=== PATIENT | male | born 1945 | race Caucasian/White ===

== ENCOUNTER → 2019-12-17 09:17 | Outpatient (REF) | payer MEDICARE, SELFPAY | LOC: ANHLAB 09:17 | PROVIDERS: PCP Internal Medicine; Visit Provider Nurse Practitioner Family | DX: C44.519 Basal cell carcinoma of skin of other part of trunk (principal) | CPT/HCPCS: 88305 ==

== ENCOUNTER 2021-02-20 15:10 | Outpatient (CLI) | payer MEDICARE, SELFPAY ==
--- NOTE | ~2021-02-20 | US_ITS ---
EXAMINATION: US carotid duplex BI DATE: 02/20/2021 15:48 INDICATION: Transient ischemic attack. Cerebral infarction. TECHNIQUE: Grayscale, color Doppler, and pulsed Doppler images of the cervical carotid arteries were obtained. The degree of vessel stenosis is placed in one of the following categories: normal, <50%, 5 0-69%, >=70% but less than near-occlusion, near-occlusion, or total occlusion. Note that percent sten osis relative to normal distal artery lumen diameter is indirectly measured from velocity measurement s as described by Ata, et al. Radiology 2003; 229:340-346. COMPARISON: None. FINDINGS: RIGHT: The right common carotid artery (CCA) peak systolic velocity (PSV) is 91 cm/s. The right internal car otid artery (ICA) PSV is 87 cm/s. The right ICA end-diastolic velocity (EDV) is 35 cm/s. The right IC A/CCA PSV ratio is 1.0. Grayscale and color Doppler images yield an estimate of <50% diameter reducti on from plaque in the ICA. There is antegrade flow in the right vertebral artery. LEFT: The left CCA PSV is 89 cm/s. The left ICA PSV is 73 cm/s. The left ICA EDV is 34 cm/s. The left ICA/C CA PSV ratio is 0.8. Grayscale and color Doppler images yield an estimate of <50% diameter reduction from plaque in the ICA. There is antegrade flow in the left vertebral artery. IMPRESSION: 1. <50% stenosis in the right internal carotid artery. 2. <50% stenosis in the left internal carotid artery. Reviewed, dictated and finalized at location A.
== END 2021-02-20 15:11 | disposition home or self-care (01) ==
PROVIDERS: PCP Internal Medicine; Visit Provider Internal Medicine
DX: Z86.73 Personal history of transient ischemic attack (TIA), and cerebral infarction without residual deficits (principal); I65.23 Occlusion and stenosis of bilateral carotid arteries
CPT/HCPCS: 93880

== ENCOUNTER 2021-03-02 12:06 | Outpatient (CLI) | payer MEDICARE, SELFPAY ==
--- NOTE | 2021-03-02 12:52 | ECHO_ITS ---
Patient Info Name: Aldo Murray Age: 75 years : 1945 Gender: Male Ht: 70 in Wt: 180 lbs BSA: 2.02 m2 HR: 78 bpm BP: 125 / 76 mmHg Technical Quality: Good Exam Date: 03/02/2021 1:07 PM Exam Location: [facility] Patient Status: Outpatient Admit Date: 03/02/2021 Staff Ordering Physician: Jaun Frias MD Farmer And Grazier: Lynette Reaves RDCS Attending Provider: Jaun Frias MD Exam Type: CA echo doppler color flow Study Info Indications - hx/o AICD - chronic combined systloic diastloic heart failure Complete two-dimensional, color flow and Doppler transthoracic echocardiogram is performed. Summary 1. Complete two-dimensional, color flow and Doppler transthoracic echocardiogram is performed. 2. Left ventricular chamber dimension is severely enlarged. 3. Left ventricular systolic function is severely reduced, estimated at 20-25%. 4. The left ventricular diastolic function is grade I diastolic dysfunction. 5. E/e' 10 is mildly elevated. 6. Linear artifact in right ventricle suggestive of catheter(s), pacemaker lead(s), or ICD lead(s). 7. Left atrial chamber dimension is mildly enlarged. 8. Linear artifact in the right atrium suggestive of catheter(s), pacemaker lead(s), or ICD lead(s). 9. There is mild mitral valve regurgitation. 10. There is moderate tricuspid valve regurgitation. 11. No pulmonary hypertension, estimated pulmonary arterial systolic pressure is 27 mmHg. Left Ventricle E/e' 10 is mildly elevated. Left ventricular chamber dimension is severely enlarged. Left ventricular systolic function is severely reduced, estimated at 20-25%. The left ventricular diastolic function is grade I diastolic dysfunction. Right Ventricle Linear artifact in right ventricle suggestive of catheter(s), pacemaker lead(s), or ICD lead(s). Right ventricular chamber dimension is normal. Right ventricular systolic function is normal. Left Atria Left atrial chamber dimension is mildly enlarged. Right Atria Linear artifact in the right atrium suggestive of catheter(s), pacemaker lead(s), or ICD lead(s). Right atrial chamber dimension is normal. Aortic Valve The aortic valve is trileaflet. There is no aortic valve stenosis. There is no aortic valve regurgitation. Pulmonic Valve There is no pulmonic regurgitation. Mitral Valve There is no mitral valve stenosis. There is mild mitral valve regurgitation. Tricuspid Valve There is moderate tricuspid valve regurgitation. No pulmonary hypertension, estimated pulmonary arterial systolic pressure is 27 mmHg. Pericardium/Pleural There is no pericardial effusion. Inferior Vena Cava Inferior vena cava is not well visualized. Aorta The aortic root size at the sinus of Valsalva is normal. Left Ventricular Outflow Tract Name Value Normal LVOT 2D LVOT Diameter 2.1 cm LVOT Doppler LVOT Peak Gradient 2 mmHg LVOT Mean Gradient 1 mmHg LVOT VTI 16 cm LVOT VTI/AV VTI Ratio 0.8 LVOT Stroke Volume
== END 2021-03-02 12:07 | disposition home or self-care (01) ==
PROVIDERS: PCP Internal Medicine; Visit Provider Internal Medicine
DX: I50.42 Chronic combined systolic (congestive) and diastolic (congestive) heart failure (principal); I34.0 Nonrheumatic mitral (valve) insufficiency; I36.1 Nonrheumatic tricuspid (valve) insufficiency
CPT/HCPCS: 93306

== ENCOUNTER → 2021-08-21 11:39 | Outpatient (CLI) | payer MEDICARE, SELFPAY ==
--- NOTE | ~2021-08-21 | CT_ITS ---
EXAMINATION: CT brain wo con DATE: 08/21/2021 11:55 INDICATION: Dementia. Alzheimer's disease unspecified. TECHNIQUE: Computed tomography (CT) of the head was performed without intravenous contrast. The mA wa s adjusted according to patient size. Iterative reconstruction technique was employed. The dose-lengt h product was 599.57 mGy-cm. COMPARISON: None FINDINGS: There is an old infarct in left caudate nucleus. There is an old infarct in left parietal-o ccipital region. There is no intracranial hemorrhage, acute infarction, or abnormal intracranial mass lesion. The ventricles are normal in size. There are likely changes of ocular lens replacement surge kenny. There is mild mucosal thickening in the paranasal sinuses. The mastoid air cells are normal. IMPRESSION: 1. 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 Reviewed, dictated and finalized at location A. [employer]
== END ==
PROVIDERS: PCP Internal Medicine; Visit Provider Nurse Practitioner Gerontology
DX: G30.9 Alzheimer's disease, unspecified (principal); F02.80 Dementia in other diseases classified elsewhere, unspecified severity, without behavioral disturbance, psychotic disturbance, mood disturbance, and anxiety; Z86.73 Personal history of transient ischemic attack (TIA), and cerebral infarction without residual deficits
CPT/HCPCS: 70450

== ENCOUNTER → 2023-01-02 08:20 | Outpatient (CLI) | payer MEDICARE, SELFPAY ==
--- NOTE | ~2023-01-02 | XR_ITS ---
XR chest 2V DATE: 01/02/2023 08:35 INDICATION: Acute cough for 1.5 weeks. Hypertension. Previous smoker. TECHNIQUE: 2 views COMPARISON: None FINDINGS: Status post sternotomy. Left AICD/pacemaker. Normal heart size. There is aortic calcificati on and unfolding. No hilar or mediastinal enlargement. Minimal discoid atelectasis or scarring at the right lung base. The lungs are clear of infiltrate or consolidation. No pleural effusion or pulmonary vascular congestion or pneumothorax. IMPRESSION: Status post sternotomy Left AICD/pacemaker Aortic atherosclerosis Mild discoid scarring or atelectasis at right lung base; otherwise no active cardiopulmonary disease Reviewed, dictated and finalized at location B. IMPRESSION: Status post sternotomy Left AICD/pacemaker Aortic atherosclerosis Mild discoid scarring or atelectasis at right lung base; otherwise no active ca rdiopulmonary disease
== END ==
PROVIDERS: PCP Internal Medicine
DX: R05.1 Acute cough (principal); I70.0 Atherosclerosis of aorta; Z95.0 Presence of cardiac pacemaker
CPT/HCPCS: 71046

== ENCOUNTER 2023-11-12 01:22 | Emergency (ER) | payer MEDICARE, SELFPAY ==
--- NOTE | ~2023-11-12 | CT_ITS ---
EXAMINATION: CTA LE RT DATE: 11/12/2023 03:43 INDICATION: Right calf pain. Peripheral arterial disease. TECHNIQUE: Computed tomographic angiography (CTA) of the right lower extremities was performed with 1 30 mL Omnipaque-350 intravenous contrast. Automated exposure control and iterative reconstruction prem hnique were employed. The dose-length product was 553.32 mGy-cm. Maximum intensity projection 3D-cullen nstructions of the arteries were created by the technologist on a separate workstation. COMPARISON: None. FINDINGS: RIGHT LOWER EXTREMITY VASCULATURE: There is no significant stenosis of right common femoral artery. There is mild stenosis of origin of right profunda femoris. There is total occlusion of right superficial femoral artery at its origin wi th intermittent partial opacification from collaterals. There is reconstitution of flow in distal rig ht superficial femoral artery. There is total occlusion of right above-knee popliteal artery, tibiope roneal trunk, and peroneal artery. There is reconstitution of flow in proximal right anterior tibial artery. Distal right anterior tibial artery is not opacified, which may be secondary to occlusion or contrast timing. There is reconstitution of flow in proximal posterior tibial artery. There is interm ittent moderate stenosis of posterior tibial artery ADDITIONAL FINDINGS: The prostate is moderately enlarged. There is mild right hip and knee osteoarthritis. IMPRESSION: 1. Total occlusion of proximal right superficial femoral artery with distal reconstitution. 2. Total occlusion of right above-knee popliteal artery, tibioperoneal trunk, and peroneal artery. 3. Reconstitution of flow in proximal right anterior tibial artery. Lack of contrast in distal right anterior tibial artery may be secondary to occlusion or contrast timing. 4. Reconstitution of flow in proximal posterior tibial artery. Intermittent moderate stenosis of post erior tibial artery. Reviewed, dictated and finalized at location A. [employer] AGENT IMPRESSION: 1. Total occlusion of proximal right superficial femoral artery with distal re constitution. 2. Total occlusion of right above-knee popliteal artery, tibioperoneal trunk, a nd peroneal artery. 3. Reconstitution of flow in proximal right anterior tibial artery. Lack of con trast in distal right anterior tibial artery may be secondary to occlusion or c ontrast timing. 4. Reconstitution of flow in proximal posterior tibial artery. Intermittent mod erate stenosis of posterior tibial artery.
[2023-11-12 01:30] VITALS: BP 123/73; PULSE 63; RESP 15; TEMP 36.5; O2SAT 98
--- NOTE | 2023-11-12 02:13 | ED.EXTPRO ---
HPI - Extremity Problem General Chief complaint: Extremity Problem,Nontraumatic Stated complaint: Pain in right leg Time Seen by Provider: 11/12/23 01:42 History of Present Illness HPI Narrative: 78-year-old male with a history of hypertension, TIA, dyslipidemia, CKD, s/p CABG reports for evaluation for acute onset pain to his right calf that started approximately 5 hours prior to arrival. Patient states that the onset of symptoms, his right foot was numb but is no longer numb. He denies recent injury or trauma, swelling, chest pain or shortness of breath, abdominal pain, syncope. 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 Related Data Home Medications Medication Instructions Recorded Confirmed aspirin 81 mg tablet,delayed 81 mg PO DAILY 12/17/19 12/26/22 release (Adult Low Dose Aspirin) magnesium chloride 64 mg 64 mg PO DAILY 12/17/19 12/26/22 (magnesium chloride) tablet,delayed release simvastatin 40 mg tablet 40 mg PO 12/17/19 12/26/22 vitamin B complex (B 1 tablet PO DAILY 01/31/21 12/26/22 Complex-Vitamin B12 tablet) clopidogrel 75 mg tablet 75 mg PO DAILY 11/20/22 12/26/22 fluticasone propionate 50 2 spray intranasal BID 12/26/22 12/26/22 mcg/actuation nasal spray,suspension (Flonase Allergy Relief) Allergies Allergy/AdvReac Type Severity Reaction Status Date / Time No Known Allergies Allergy Verified 12/26/22 10:47 Review of Systems Review of Systems: CONSTITUTIONAL: Denies fever, chills, or sweats. EYES: Denies visual changes, redness, or discharge. ENT: Denies rhinorrhea, congestion, sore throat, or otalgia. CARDIOVASCULAR: Denies chest pain, palpitations, or edema. RESPIRATORY: Denies cough or dyspnea. GASTROINTESTINAL: Denies abdominal pain, nausea, vomiting, or diarrhea. GENITOURINARY: Denies dysuria or hematuria. SKIN: Denies rash or itching. MUSCULOSKELETAL: See HPI NEUROLOGIC: Denies headache, numbness, or weakness. PSYCHIATRIC: Denies anxiety or depression. [facility] Past Medical History Medical History Actinic keratosis BCC (basal cell carcinoma of skin) Benign non-nodular prostatic hyperplasia with lower urinary tract symptoms Chronic allergic rhinitis CKD stage G3a/A1, GFR 45-59 and albumin creatinine ratio <30 mg/g Essential (primary) hypertension Gastro-esophageal reflux disease without esophagitis Hemorrhoids without complication Hypothyroidism (acquired) Hypovitaminosis D Ischemic cardiomyopathy Nasal septal deviation Systolic and diastolic CHF, chronic Surgical History Surgical History Hx of CABG Social History Social History Social History: Patient stopped smoking 20 years ago Smoking packs per day: 3 Smoking cigarettes per day: 60.0 Years smoked: 40 Smoking pack-years: 120.00 Smoking status: Former smoker (quit after his first heart attack) Second hand tobacco smoke exposure: Yes Smoking end date: 10/07/89 Alcohol intake: never Substance use: never Substance use type: does not use Lack of Transportation: No Lack of Food: Never True Current Housing: I Have Housing Concerned About Future Housing: No Difficulty Paying Gas/Electric Bills: No Difficulty Paying for Meds: No Currently Unemployed: No Education: Trade/Vocational Certificate Difficulty w/ Childcare or Family Care: No Exam Narrative: GENERAL: Well-appearing, well-nourished, and in no acute distress. HEAD: Normocephalic, atraumatic. EYES: PERRLA and EOMI. ENT: Nares clear, no rhinorrhea or epistaxis. Mucous membranes moist. NECK: Supple. CHEST: Clear to auscultation. No respiratory distress. HEART: Regular rate and rhythm. No murmur heard. Normal peripheral pulses. ABDOMEN: Soft, nontender, nondistended, normal active bowel sounds. EXTREMITIES: Tenderness
[2023-11-12 02:44] VITALS: BP 128/70; PULSE 60; RESP 13; O2SAT 99
[2023-11-12 02:45] VITALS: BP 137/80; PULSE 65; RESP 19; O2SAT 99
[2023-11-12 02:52] LABS: Basophils Percent Auto 0.5 % (0.2-1.2); Eosinophils Absolute Auto 0.1 K/mm3 (0-0.3); Eosinophils Percent Auto 0.9 % (0-4.4); Hematocrit 43.9 % (42.0-52.0); Hemoglobin 14.8 g/dL (14.0-18.0); Immature Granulocyte Absolute 0.03 K/mm3 (0.00-0.031); Immature Granulocyte Percent A 0.3 % (0-0.5); Lymphocytes Absolute Auto 2.32 K/mm3 (0.9-3.2); Lymphocytes Percent Auto 26.2 % (18.3-44.2); Mean Corpuscular HGB Conc 33.7 g/dl (32-36); Mean Corpuscular Hemoglobin 31.3 pg (26-34); Mean Corpuscular Volume 92.8 fl (80-100); Mean Platelet Volume 9.4 fl (7.4-10.4); Monocytes Absolute Auto 0.8 K/mm3 (0.1-0.6); Monocytes Percent Auto 9.5 % (2.6-8.5); Neutrophils Absolute Auto 5.5 K/mm3 (1.3-6.7); Neutrophils Percent Auto 62.6 % (45.5-73.1); Platelet Count Result 201 k/mm3 (150-375); Red Blood Count 4.73 M/mm3 (4.6-6.20); Red Cell Distribution Width 12.2 % (11.5-14.5); White Blood Count 8.9 K/mm3 (4.5-10.0)
[2023-11-12 03:00] LABS: INR 1.1; Prothrombin Time 14.8 Seconds (11.1-14.7)
[2023-11-12 03:01] VITALS: BP 134/77; PULSE 68; RESP 21; O2SAT 98
[2023-11-12 03:01] LABS: Partial Thromboplastin Time 30.5 SECONDS (22.3-36.8)
[2023-11-12 03:06] LABS: D Dimer 1.55 ug/mL (<0.48)
[2023-11-12 03:08] LABS: Lactic Acid Reflex 0.8 mmol/L (0.7-2.0)
[2023-11-12 03:09] LABS: Alanine Aminotransferase 19 U/L (6-50); Albumin Level 3.7 g/dL (3.5-5.1); Alkaline Phosphatase 64 U/L (38-126); Anion Gap 6 mmol/L (8-16); Aspartate Amino Transferase 30 U/L (17-59); Bilirubin,Total 1.5 mg/dL (0.2-1.3); Blood Urea Nitrogen 14 mg/dL (9-20); Calcium 9.5 mg/dL (8.4-10.2); Carbon Dioxide 26 mmol/L (22-30); Chloride 104 mmol/L (98-107); Estimated CRCL calculation 46 ml/min; Estimated Glomerular Filt Rate 59; Glucose 114 mg/dL (65-110); Sodium 136 mmol/L (137-145)
[2023-11-12 03:48] VITALS: BP 137/74; PULSE 64; RESP 19; O2SAT 100
[2023-11-12] MEDS: HEPARIN SODIUM 5,000 UNITS/ML VIAL 4000 UNITS IV PUSH (03:49)
[2023-11-12] MEDS: HEPARIN SOD/D5W 100 UNITS/ML 25,000 UNITS/250 ML BAG 10 UNITS IV CONT (03:49)
[2023-11-12 04:45] VITALS: BP 140/79; PULSE 60; RESP 12; O2SAT 98
== END 2023-11-12 04:59 | disposition short-term general hospital (02) ==
PROVIDERS: Emergency Provider Physician Assistant
DX: M79.605 Pain in left leg (principal); R09.89 Other specified symptoms and signs involving the circulatory and respiratory systems; F17.210 Nicotine dependence, cigarettes, uncomplicated; N18.31 Chronic kidney disease, stage 3a; K21.9 Gastro-esophageal reflux disease without esophagitis; E03.9 Hypothyroidism, unspecified; I13.0 Hypertensive heart and chronic kidney disease with heart failure and stage 1 through stage 4 chronic kidney disease, or unspecified chronic kidney disease; I50.9 Heart failure, unspecified
CPT/HCPCS: 36415; 73706; 80053; 83605; 85025; 85380; 85610; 85730; 96365; 99285; J1644; Q9967